=== PATIENT | male | born 2000 | race Caucasian/White ===

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

== ENCOUNTER 2025-01-12 19:36 | Emergency (ER) | payer MEDICAID, OTHER ==
[~2025-01-12] VITALS: Ht 160 cm; Wt 54.5 kg
[2025-01-12 19:37] VITALS: TEMP 97.7
[2025-01-12] MEDS ORDERED: DOXY-354 PO (21:41)
[2025-01-12] MEDS: IBUPROFEN 400 MG TABLET PO ONE (21:51)
[2025-01-12] MEDS: DOXYCYCLINE HYCLATE 100 MG TABLET PO ONE (21:51)
[2025-01-12 21:53] VITALS: BP 120/93; PULSE 90; RESP 20; O2SAT 100
== END 2025-01-12 21:54 | disposition home or self-care (01) ==
LOC: EMS 19:36
DX: S90.862A Insect bite (nonvenomous), left foot, initial encounter (principal); L03.116 Cellulitis of left lower limb; W57.XXXA Bitten or stung by nonvenomous insect and other nonvenomous arthropods, initial encounter; Y93.89 Activity, other specified; Y92.89 Other specified places as the place of occurrence of the external cause; Y99.8 Other external cause status
CPT/HCPCS: 99283